=== PATIENT | male | born 1995 | race Caucasian/White ===

== ENCOUNTER 2021-01-19 08:11 | Emergency (ER) | payer BC, SELFPAY ==
--- NOTE | 2021-01-19 08:36 | ED.URI ---
HPI - URI/Sore Throat General Chief Complaint: Upper Respiratory Infection Stated Complaint: COVID Symptoms Time Seen by Provider: 01/19/21 08:55 Source: patient and RN notes reviewed Mode of arrival: ambulatory Limitations: no limitations History of Present Illness HPI Narrative: 25 year old male presents to express care with complaints of cough, fevers, sinus drainage and sore throat since yesterday. Patient denies any shortness of breath, respirations are even and nonlabored with SAO2 99% on room air. Patient works at [employer] around food and is concerned he may have been exposed to COVID or have something contagious. Patient states that he did have 101F fever last night and has been taking Ibuprofen for his symptoms which have progressively worsening. MD elicited complaint: fever, cough, sore throat, rhinorrhea, nasal congestion and other (myalgia) Pertinent past history: tympanostony tubes Onset (ago): day(s) (day 2 of symptoms) Consistency: constant and progressively worsening Severity: mild Pain scale (0-10): 2 Description of mucous: clear Able to tolerate fluids by mouth: Yes Exacerbating factors: swallowing Associated symptoms: fever, myalgias, rhinorrhea, nasal congestion, sore throat and cough Treatments prior to arrival: ibuprofen Related Data Allergies Allergy/AdvReac Type Severity Reaction Status Date / Time No Known Allergies Allergy Verified 01/19/21 09:00 Review of Systems Review of Systems: Narrative: CONSTITUTIONAL: Positive fever, chills, or sweats. EYES: Denies visual changes, redness, or discharge. ENT: Positive rhinorrhea, congestion, sore throat, no otalgia. CARDIOVASCULAR: Denies chest pain, palpitations, or edema. RESPIRATORY:Positive for cough denies dyspnea. GASTROINTESTINAL: Denies abdominal pain, nausea, vomiting, or diarrhea. GENITOURINARY: Denies dysuria or hematuria. SKIN: Denies rash or itching. MUSCULOSKELETAL: Denies back pain, joint pain, positive body aches NEUROLOGIC: Denies headache, numbness, or weakness. PSYCHIATRIC: Denies anxiety or depression. All systems reviewed & are unremarkable except as noted in HPI and below PMFSH Past Medical History Medical History (Updated 01/20/21 @ 00:00 by Brittany Allen) History of ear infections as a child History of strep sore throat Surgical History Surgical History (Updated 01/19/21 @ 09:21 by Kiana Redding NP) History of placement of ear tubes History of tonsillectomy and adenoidectomy History of tympanoplasty of left ear Family History Family History (Updated 01/19/21 @ 09:22 by Kiana Redding NP) Grandparent Lung cancer Social History Social History (Updated 01/19/21 @ 09:22 by Kiana Redding NP) Tobacco type: e-cigarettes/vaping Alcohol intake: current Alcohol use details: social Substance use: never Living arrangements: with family Gender identity (if verbalized by the patient): Male Comments At time of signature, agree with nursing past medical, surgical, social and family history. There is no relevant family history pertinent to the presenting complaint Exam Narrative: Exam Narrative: GENERAL: Well-appearing, well-nourished, and in no acute distress. HEAD: Normocephalic, atraumatic. EYES: PERRLA and EOMI. ENT: Nares red with turbinates swollen, clear rhinorrhea no epistaxis. Mucous membranes moist.TM's have scar tissue present from previous ear surgeries, no redness of TM or canal, throat red with uvula midline no tonsils visualized, no exudate or lesions NECK: Supple.no lymphadenopathy CHEST: Clear to auscultation. No respiratory distress.cough non productive, SAO2 99% on room air HEART: Regular rate and rhythm. No murmur heard. Normal peripheral pulses. ABDOMEN: Soft, nontender, nondistended, normal active bowel sounds. EXTREMITIES: Normal range of motion. No edema. SKIN: Warm, dry, no rash. NEURO: No focal deficits. Alert and oriented x3. Course Vital Signs Vital signs: Vital
[2021-01-19 08:40] VITALS: BP 139/85; PULSE 73; RESP 16; TEMP 36.6; O2SAT 99
[2021-01-20 01:43] LABS: SARS-CoV-2 RNA PCR Negative
== END 2021-01-19 09:44 | disposition home or self-care (01) ==
PROVIDERS: Emergency Provider Registered Nurse
DX: J02.9 Acute pharyngitis, unspecified (principal); J06.9 Acute upper respiratory infection, unspecified; Z20.822 Contact with and (suspected) exposure to COVID-19; F17.200 Nicotine dependence, unspecified, uncomplicated
CPT/HCPCS: 87081; 87426; 87804; 87880; 99213; C9803; G0463; U0003; U0005

== ENCOUNTER 2023-10-10 16:29 | Emergency (ER) | payer BC, SELFPAY ==
[2023-10-10 16:42] VITALS: BP 137/78; PULSE 63; RESP 18; TEMP 36.8; O2SAT 99
[2023-10-10 16:43] VITALS: BP 137/78; PULSE 63; RESP 18; TEMP 36.8; O2SAT 99
--- NOTE | 2023-10-10 16:47 | ED.GENADULT ---
HPI - General Adult General Chief complaint: Ear Stated complaint: Right Ear Problem Source: patient, RN notes reviewed and old records reviewed Mode of arrival: ambulatory Limitations: no limitations History of Present Illness HPI narrative: 27-year-old male with complaint of right ear pressure, feeling clogged, and ringing this started 3 days ago. patient denies pain in ear. Patient denies recent illness. MD complaint: Ear ringing Onset (ago): day(s) (3) Related Data Allergies Allergy/AdvReac Type Severity Reaction Status Date / Time No Known Allergies Allergy Verified 01/19/21 09:00 Review of Systems Constitutional: Constitutional: Reports no additional constitutional complaints, Denies body ache(s), Denies chills, Denies fatigue, Denies fever(s) and Denies headache(s) Eyes: Eyes: Reports no additional eye complaints and Denies blurry vision ENT: Reports system reviewed and no additional complaints, except as documented, Denies vertigo, Denies dizziness, Denies ear discharge, Denies otalgia, Denies facial pain, Denies headache(s), Denies nasal congestion, Denies nasal discharge, Denies sinus pain, Denies sinus pressure and Denies sore throat Comments: decreased hearing and ringing in right ear Cardiovascular: Cardiovascular: Reports no additional cardiovascular complaints, Denies chest pain, Denies chest pain at rest, Denies rapid heart rate and Denies dyspnea Respiratory: Respiratory: Reports no additional respiratory complaints, Denies chest congestion, Denies cough, Denies pain on inspiration, Denies pain with cough and Denies dyspnea Gastrointestinal: Gastrointestinal: Denies abdominal pain, Denies diarrhea, Denies nausea and Denies vomiting Integumentary/Breasts: Skin/Breast: Denies rash Neurologic: Reports system reviewed and no additional complaints, except as documented, Denies vertigo, Denies dizziness and Denies headache(s) Endocrine: Endocrine: Denies fatigue PMF Past Medical History Medical History (Updated 10/10/23 @ 16:50 by Gladys Long APRN) History of ear infections as a child History of strep sore throat Surgical History Surgical History (Updated 01/19/21 @ 09:21 by Kiana Redding NP) History of placement of ear tubes History of tonsillectomy and adenoidectomy History of tympanoplasty of left ear Family History Family History (Updated 01/19/21 @ 09:22 by Kiana Redding NP) Grandparent Lung cancer Social History Social History (Updated 01/19/21 @ 09:22 by Kiana Redding NP) Tobacco type: e-cigarettes/vaping Alcohol intake: current Alcohol use details: social Substance use: never Living arrangements: with family Gender identity (if verbalized by the patient): Male Comments At the time of my signature, I reviewed and agree with the nursing past medical, surgical, social, and family history. There is no relevant family history pertinent to the patient complaint. Exam Const: General: cooperative, healthy appearing, no acute distress and well nourished Nutritional Appearance: well nourished Orientation/consciousness: patient oriented x3 Limitations: no limitations HENMT: Head: normal to inspection and normocephalic Ears: external ears normal, TM's normal bilaterally, mastoids normal, Abnormal EAC present and TM abnormal wth effusion serous on the right Face/Nose/Sinus: normal facial exam Face and sinus: normal facial exam Mouth: Yes Normal oral and palatal mucosa present, Yes oropharynx normal and Yes moist mucous membranes Throat: tonsils normal, uvula midline and no uvular edema Eyes: General: appearance normal, both eyes and all related structures Sclera: sclerae normal Pupils: Equal, round and reactive pupils present Resp: Effort & Inspection: normal respiratory effort, able to speak in complete sentences, no audible wheezes, no cough, no respiratory distress and no retractions Auscultation: clear to auscultation bilaterally, no crac
== END 2023-10-10 16:55 | disposition home or self-care (01) ==
PROVIDERS: Emergency Provider Registered Nurse
DX: H65.191 Other acute nonsuppurative otitis media, right ear (principal); F17.290 Nicotine dependence, other tobacco product, uncomplicated
CPT/HCPCS: 99213; G0463